=== PATIENT | female | born 1980 | race Two or more races ===

== ENCOUNTER 2023-03-19 06:00 | Day surgery (SDC) | payer OTHER ==
[~2023-03-19] VITALS: Ht 165.1 cm; Wt 106.6 kg
== END 2023-03-19 13:30 | disposition home or self-care (01) ==
LOC: CIR.AMB 06:00
PROVIDERS: ATTEND Orthopaedic Surgery Hand Surgery
DX: M25.831 Other specified joint disorders, right wrist (principal); Z20.822 Contact with and (suspected) exposure to COVID-19; E11.9 Type 2 diabetes mellitus without complications; E78.00 Pure hypercholesterolemia, unspecified; E78.3 Hyperchylomicronemia; I10 Essential (primary) hypertension